=== PATIENT | female | born 1965 | race Caucasian/White ===

== ENCOUNTER 2021-07-17 15:39 | Outpatient (CLI) | payer BC, SELFPAY ==
--- NOTE | ~2021-07-17 | MM_ITS ---
EXAMINATION: MM screening star BI w yoseph HISTORY: Screening TECHNIQUE: Craniocaudal and mediolateral oblique 3-D tomosynthesis images were obtained and synthetic 2-D images were generated. CAD analysis was submitted and interpreted. COMPARISON: Comparison to multiple prior studies sequentially, with oldest reviewed study dated 11/2012. BREAST PARENCHYMAL COMPOSITION: The breasts are heterogeneously dense, which may obscure small masses . FINDINGS: The right breast is stable without evidence for malignancy. There is a mass in the upper ou ter quadrant of the left breast with associated calcifications which is obscured by fibroglandular ti ssue. There is an additional cluster of indeterminate calcifications in the upper outer quadrant of t he left breast which are not significantly changed from prior examination, likely benign. IMPRESSION: 1. New left breast mass with associated indeterminate calcifications, upper outer quadrant of the lef t breast. 2. Additional mammographic views and possible breast ultrasound are recommended. BI-RADS Category 0: Incomplete: Needs additional imaging evaluation. Reviewed, dictated and finalized at location A. IMPRESSION: 1. New left breast mass with associated indeterminate calcifications, upper out er quadrant of the left breast. 2. Additional mammographic views and possible breast ultrasound are recommended . BI-RADS Category 0: Incomplete: Needs additional imaging evaluation.
== END 2021-07-17 15:40 | disposition home or self-care (01) ==
LOC: ANHIMG 15:43
PROVIDERS: PCP Internal Medicine; Visit Provider Obstetrics & Gynecology
DX: Z12.31 Encounter for screening mammogram for malignant neoplasm of breast (principal); R92.8 Other abnormal and inconclusive findings on diagnostic imaging of breast
CPT/HCPCS: 77063; 77067

== ENCOUNTER 2021-08-07 12:42 | Outpatient (CLI) | payer BC, SELFPAY ==
--- NOTE | ~2021-08-07 | MMUS_ITS ---
EXAMINATION: MM diagnostic star LT w yoseph, US breast LT limited HISTORY: Follow-up left breast mass TECHNIQUE: Additional 3-D tomosynthesis images of the left breast were performed and synthetic 2-D im ages were generated. CAD analysis was submitted and interpreted. High resolution Limited left breast ultrasound was performed. COMPARISON: 07/17/2021 BREAST PARENCHYMAL COMPOSITION: The breasts are heterogenously dense, which may obscure small masses. FINDINGS: MAMMOGRAPHIC FINDINGS: There are benign-appearing left breast calcifications. There is a persistent partially obscured mass in the mid outer aspect of the left breast. There is no architectural distortion. ULTRASOUND: Limited left breast ultrasound: At 3:00, 5 cm from the nipple, there is a 5 mm cyst. No suspicious so nographic abnormalities to suggest malignancy. IMPRESSION: 1. No evidence for malignancy in the left breast. Benign findings. 2. Routine yearly screening mammogram and regular clinical breast examination are recommended. BI-RADS Category 2: Benign finding(s). Reviewed, dictated and finalized at location A. IMPRESSION: 1. No evidence for malignancy in the left breast. Benign findings. 2. Routine yearly screening mammogram and regular clinical breast examination a re recommended. BI-RADS Category 2: Benign finding(s).
== END 2021-08-07 12:43 | disposition home or self-care (01) ==
LOC: ANHIMG 12:43
PROVIDERS: PCP Internal Medicine; Visit Provider Obstetrics & Gynecology
DX: R92.8 Other abnormal and inconclusive findings on diagnostic imaging of breast (principal)
CPT/HCPCS: 76642; 77061; 77065; G0279

== ENCOUNTER 2022-12-15 08:23 | Outpatient (CLI) | payer BC, SELFPAY ==
--- NOTE | ~2022-12-15 | MM_ITS ---
EXAMINATION: MM screening star BI w yoseph HISTORY: Screening TECHNIQUE: Craniocaudal and mediolateral oblique 3-D tomosynthesis images were obtained and synthetic 2-D images were generated. CAD analysis was submitted and interpreted. COMPARISON: Comparison to multiple prior studies sequentially, with oldest reviewed study dated 11/2012. BREAST PARENCHYMAL COMPOSITION: The breasts are heterogeneously dense, which may obscure small masses . FINDINGS: The right breast is stable without evidence for malignancy. There are developing clusters o f calcifications in the upper outer quadrant of the left breast posteriorly. IMPRESSION: 1. Developing clustered indeterminate calcifications upper outer quadrant of the left breast. 2. Magnification views are recommended. BI-RADS Category 0: Incomplete: Needs additional imaging evaluation. Reviewed, dictated and finalized at location A. TMETAL WORKER IMPRESSION: 1. Developing clustered indeterminate calcifications upper outer quadrant of th e left breast. 2. Magnification views are recommended. BI-RADS Category 0: Incomplete: Needs additional imaging evaluation.
== END 2022-12-15 08:24 | disposition home or self-care (01) ==
LOC: ANHIMG 08:25
PROVIDERS: PCP Physician Assistant Medical; Visit Provider Obstetrics & Gynecology
DX: Z12.31 Encounter for screening mammogram for malignant neoplasm of breast (principal); R92.8 Other abnormal and inconclusive findings on diagnostic imaging of breast
CPT/HCPCS: 77063; 77067

== ENCOUNTER 2023-01-27 13:53 | Outpatient (CLI) | payer OTHER, SELFPAY ==
--- NOTE | ~2023-01-27 | MMUS_ITS ---
EXAMINATION: MM diagnostic mammo unilat LT, US breast LT complete HISTORY: Developing clustered indeterminate calcifications reported in upper outer quadrant of left b reast on 12/15/2022 screening mammogram TECHNIQUE: Additional ML 3-D tomosynthesis images of the left breast were performed and synthetic 2-D images were generated. CAD analysis was submitted and interpreted. High resolution complete left maral ast ultrasound examination including all 4 quadrants and subareolar area was performed. COMPARISON: 12/15/2022 bilateral screening mammogram BREAST PARENCHYMAL COMPOSITION: The breasts are heterogeneously dense, which may obscure small masses . FINDINGS: MAMMOGRAPHIC FINDINGS: Several clusters of grouped benign-appearing microcalcifications are identified in the upper outer le ft breast; the calcifications are likely associated with benign fibroadenomas. No suspicious mass, architectural distortion, malignant calcification, skin thickening or retraction is evident.. ULTRASOUND: 12:00 near nipple: Parallel circumscribed hypoechoic 5.1 x 2.7 x 4.5 mm lesion without internal vascu larity or posterior shadowing, probably benign 2:00 7 cm from nipple: Parallel circumscribed hypoechoic 3.1 x 8.1 x 7.3 mm hypoechoic lesion without internal vascularity or posterior shadowing, probably benign 2:00 5 cm from nipple: Parallel circumscribed hypoechoic 6.6 x 3.3 x 6.4 mm lesion with minimal inter nal vascularity, no posterior shadowing, probably benign. Six-month targeted left breast ultrasound follow-up examination is recommended. IMPRESSION: 1. Probable benign findings 2. 6 month diagnostic right mammogram and left breast ultrasound follow-up is recommended BI-RADS category 3, probably benign findings. Reviewed, dictated and finalized at location A. IMPRESSION: 1. Probable benign findings 2. 6 month diagnostic right mammogram and left breast ultrasound follow-up is r ecommended BI-RADS category 3, probably benign findings.
== END 2023-01-27 13:54 | disposition home or self-care (01) ==
PROVIDERS: PCP Physician Assistant Medical; Visit Provider Obstetrics & Gynecology
DX: R92.8 Other abnormal and inconclusive findings on diagnostic imaging of breast (principal)
CPT/HCPCS: 76641; 77065

== ENCOUNTER 2023-10-01 12:44 | Outpatient (CLI) | payer OTHER, SELFPAY ==
--- NOTE | ~2023-10-01 | MM_ITS ---
EXAMINATION: MM diagnostic star LT w yoseph HISTORY: Left breast calcifications TECHNIQUE: Additional 3-D tomosynthesis images of the left breast were performed and synthetic 2-D im ages were generated. Magnification views are also obtained. CAD analysis was submitted and interprete d. COMPARISON: 01/27/2023, 10/15/2023, 08/07/2021, 07/17/2021 BREAST PARENCHYMAL COMPOSITION: The breasts are heterogeneously dense, which may obscure small masses . FINDINGS: There are stable, grouped calcifications in the middle third of the outer breast at the 3:0 0 location, 5 cm from the nipple. There has been no suspicious interval change. The morphology appear s to be dystrophic or coarse heterogeneous. IMPRESSION: 1. Stable, probably benign left breast calcifications. 2. Recommend 6 month follow-up diagnostic mammogram. In addition, patient is due for limited breast u ltrasound for follow-up of a probably benign sonographically detected left breast mass. BI-RADS Category 0: Incomplete: Needs additional imaging evaluation. Reviewed, dictated and finalized at location A. N TESTER IMPRESSION: 1. Stable, probably benign left breast calcifications. 2. Recommend 6 month follow-up diagnostic mammogram. In addition, patient is du e for limited breast ultrasound for follow-up of a probably benign sonographica lly detected left breast mass. BI-RADS Category 0: Incomplete: Needs additional imaging evaluation.
== END 2023-10-01 12:45 | disposition home or self-care (01) ==
PROVIDERS: PCP Physician Assistant Medical; Visit Provider Obstetrics & Gynecology
DX: R92.8 Other abnormal and inconclusive findings on diagnostic imaging of breast (principal)
CPT/HCPCS: 77061; 77065; G0279

== ENCOUNTER 2024-05-12 11:25 | Outpatient (CLI) | payer OTHER, SELFPAY ==
--- NOTE | ~2024-05-12 | MMUS_ITS ---
EXAMINATION: MM diagnostic star BI w yoseph, US breast LT limited HISTORY: Follow-up of left breast probably benign calcifications TECHNIQUE: 3-D tomosynthesis images of bilateral breasts were performed and synthetic 2-D images were generated. CAD analysis was submitted and interpreted. High resolution limited left breast ultrasoun d was performed. COMPARISON: 12/15/2022, 01/27/2023, 10/01/2023 FINDINGS: MAMMOGRAPHIC FINDINGS: Breast parenchyma is extremely dense, which lowers the sensitivity of mammography. Parenchymal pattern of both breasts is unchanged. Stable benign coarse calcifications present bilater ally. No suspicious myocardial calcification identified. No suspicious mass lesion or distortion seen . ULTRASOUND: At the 12:00 position of the left breast, neither the nipple, there is a stable 6 x 3 x 3 mm hypoecho ic, wider than tall ovoid mass. No posterior shadowing. At the 2:00 position left breast, 5 cm from t he nipple, there is a stable 6 mm ovoid circumscribed hypoechoic mass, without posterior shadowing. N earby simple cyst is also unchanged. IMPRESSION: No evidence for malignancy. Stable probable benign sonographic lesions seen in left breast, as detai led above. 6 month follow-up left breast ultrasound recommended to show continued stability. BI-RADS category 3, probably benign findings. Reviewed, dictated and finalized at location M. IMPRESSION: No evidence for malignancy. Stable probable benign sonographic lesions seen in left breast, as detailed above. 6 month follow-up left breast ultrasound recom mended to show continued stability. BI-RADS category 3, probably benign findings.
== END 2024-05-12 11:26 | disposition home or self-care (01) ==
PROVIDERS: PCP Nurse Practitioner Family; Visit Provider Obstetrics & Gynecology
DX: R92.8 Other abnormal and inconclusive findings on diagnostic imaging of breast (principal)
CPT/HCPCS: 76642; 77062; 77066; G0279

== ENCOUNTER 2024-11-07 12:50 | Outpatient (CLI) | payer OTHER, SELFPAY ==
--- NOTE | ~2024-11-07 | US_ITS ---
EXAMINATION TYPE: US breast LT limited COMPARISON: 05/12/2024 REASON FOR STUDY: 6 MONTH FOLLOW UP TECHNIQUE: Targeted sonographic evaluation of the left breast was performed assessing grayscale appea gerardo and color Doppler flow. INTERPRETATION: There is a heterogenous background echotexture. At the 12:00 position of the left breast in the periareolar position is a well-circumscribed focus of decreased echogenicity measuring 2.6 x 5.6 x 2.4 mm compared with 2.5 x 6.0 x 3.0 mm without vascula rity or posterior acoustic shadowing. At the 2:00 position of the left breast approximately 5 cm from the nipple is a well-circumscribed fo cus of decreased echogenicity measuring 6.4 x 3.1 x 5.1 mm (compared with 6.2 x 3.1 x 6.9 mm on the p revious study. This focus demonstrates benign features, is without vascularity or posterior acoustic shadowing. At the 2:00 position of the left breast approximately 5 cm from the nipple is a well-circumscribed an echoic avascular focus consistent with a simple cyst for which no further follow-up is needed. IMPRESSION: Multiple well-circumscribed foci of decreased echogenicity of varying sizes, consistent with fibrocys tic breast disease. No cystic or solid lesion of concern is appreciated. BI-RADS CATEGORY: 2: Benign findings. RECOMMENDATION: Resumption of yearly mammography. Reviewed, dictated and finalized at location A. NTEER PATIENT REPRESENTATIVE IMPRESSION: Multiple well-circumscribed foci of decreased echogenicity of varying sizes, co nsistent with fibrocystic breast disease. No cystic or solid lesion of concern is appreciated. BI-RADS CATEGORY: 2: Benign findings. RECOMMENDATION: Resumption of yearly mammography.
== END 2024-11-07 12:51 | disposition home or self-care (01) ==
LOC: ANHIMG 12:56
PROVIDERS: PCP Physician Assistant Medical; Visit Provider Obstetrics & Gynecology
DX: R92.8 Other abnormal and inconclusive findings on diagnostic imaging of breast (principal)
CPT/HCPCS: 76642

== ENCOUNTER 2025-03-27 00:38 | Day surgery (SDC) | payer OTHER, SELFPAY ==
[2025-03-22 08:11] VITALS: BMI 25.0
--- OUTSIDE RECORDS SUMMARY | 2025-03-27 00:40 | XMS_ITS ---
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 ; Other acquired deformities of left foot M21.6X2 ; Left foot pain M79.672 and Right foot pain M79.671 Assessments Encounter Date Diagnosis (ICD Code) Assessment Notes Treatment Notes Treatment Clinical Notes Section Notes 08/18/2024 Other acquired deformities of right foot (ICD-10 - M21.6X1) 08/18/2024 Other acquired deformities of left foot (ICD-10 - M21.6X2) 08/18/2024 Left foot pain (ICD-10 - M79.672) 08/18/2024 Right foot pain (ICD-10 - M79.671) Plan Of Treatment Next Appt Details Follow Up: 2 Weeks,prn, Reas on: Procedure Notes * Category Sub-Category Detail Notes DME: Custom foot orthotics: (Charges submitted to insurance), Recommended and prescribed custom orthotics to stabilize foot structure, reduce stress on joints, relieve pain and improve foot function. Patient given no guarantees regarding effectiveness or relief obtained from custom orthotics. Patient agreed to proceed. , Orthotic fabrication: a negative impression of the patient's feet was obtained and a positive mold of the patient's feet was then created. The custom foot orthotic was then fabricated and finished according to the doctor's prescription. The custom foot orthoses were fitted to the patient's feet in both NWB and WB stance and any adjustments performed as necessary to insure appropriate contour of the orthotic device to each foot and the patient reported satisfaction with initial fit., Finishing of the custom orthotics performed by orthotic tech. The orthotics were fitted to the patients shoes and patient reported satisfaction with fit. DME Management & Training (77246): A min imum of 8-10 minutes were spent with patient for orthotic management and training., Custom foot orthotics: the orthoses were then placed in the patient's shoes and patient walked about the office and any adjustment of the orthotic was performed as necessary until patient reported no issues with slippage or ill fit in shoe. The orthoses were removed from the shoes and patient instructed to allow orthotics to cure for 24 hours before resuming wear. Upon wearing the orthotics again patient was advised to monitor feet for any obvious discomfort and if noted remove the orthotic from the shoes and allow at least 1-2 hours to pass before placing orthotics back in shoes and wearing again. Advised to repeat as necessary until able to wear orthotics qualification engineer with no issues. Dispensed wear and care instructions. All questions answered. Patient scheduled to return to office in 2-4 weeks for check-up of orthotic and f/u of condition. Progress Notes * Kya NAIRDOB:1965 (58 yo F)Acc No.[id number]:08/18/2024 Progress Notes Patient: Kya WILEY Provider: Blayne Reid DPM :1965 A ge:58 Y S ex:Female Date:08/18/2024 Address:[address] [place], [place] [id number] Pcp:Mary Gonzalez Subjective: * Chief Complaints: * O rthotic FABRICATE * HPI: Jos Morgan assisting with visit:: Orthotic Fabrication / Modification L adri. P rimary reason for visit:: Patient presents for custom orthotic fabrication. See provider progress note for details regarding order / Rx. Charges for orthotics will be submitted to insurance and patient is aware of responsibility for any coninsurance, copay or deductible associated with custom orthotics. * Medical History: * Medications: Objective: * Vitals: * Examination: G eneral Examination: F itting of durable medical equipment performed by [facility]. No exam performed other than that required as part of the fitting process. Assessment: * Assessment: 1. O ther acquired deformities of right foot - M21.6X1 (Primary) 2 . O ther acquired deformities of left foot - M21.6X2 3 . L eft foot pain - M79.672 ? 4 . R ight foot pain - M79.671 Plan: * Treatment: * Procedures: D ME:: Custom foot orthotics: ( Charges submitted to insurance), Recommended and prescribed custom orthotics to stabilize foot structure, reduce stress on joints, relieve pain and improve foot function. Patient given no guarantees regarding effectiveness or relief obtained from custom orthotics. Patient agreed to proceed. , Orthotic fabrication: a negative impression of the patient's feet was obtained and a positive mold of the patient's feet was then created. The custom foot orthotic was then fabricated and finished according to the doctor's prescription. The custom foot orthoses were fitted to the patient's feet in both NWB and WB stance and any adjustments performed as necessary to insure appropriate contour of the orthotic device to each foot and the patient reported satisfaction with initial fit., Finishing of the custom orthotics performed by [employer] tech. The orthotics were fitted to the patients shoes and patient reported satisfaction with fit. . DME Management & Training (13095): A minimum of 8-10 minutes were spent with patient for orthotic management and training., Custom foot orthotics: the orthoses were then placed in the patient's shoes and patient walked about the office and any adjustment of the orthotic was performed as necessary until patient reported no issues with slippage or ill fit in shoe. The orthoses were removed from the shoes and patient instructed to allow orthotics to cure for 24 hours before resuming wear. Upon wearing the orthotics again patient was advised to monitor feet for any obvious discomfort and if noted remove the orthotic from the shoes and allow at least 1-2 hours to pass before placing orthotics back in shoes and wearing again. Advised to repeat as necessary until able to wear orthotics qualification engineer with no issues. Dispensed wear and care instructions. All questions answered. Patient scheduled to return to office in 2-4 weeks for check-up of orthotic and f/u of condition. . * Procedure Codes: L 3000 FT INSRT MOLD UCB TYPE BERKLY SHELL, Modifiers: LT L3000 FT INSRT MOLD UCB TYPE BERKLY SHELL, Modifiers: RT S0395 (negative impression of foot), Units: 2.00 , Modifiers: LT , [id number] ORTHOTIC MGMT AND TRAINING * Follow Up: 2 Weeks,prn * Images: * Sign off status: Completed true * Provider: Blayne Reid DPM Date: Generated for Esvin santos/Jony/Diego on: 0 03/27/2025 12:40 AM CDT History and Physical Notes * HPI (History of Present Illness) Category Sub-Category Detail Notes Category Not es Primary reason for visit: Patient presents for custom orthotic fabrication. See provider progress note for details regarding order / Rx. Charges for orthotics will be submitted to insurance and patient is aware of responsibility for any coninsurance, copay or deductible associated with custom orthotics. MA assisting with visit: Orthotic Fabrication / Modification Leonor Examination Category Sub-Category Detail Notes Category Not es General Examination Fitting of durable medical equipment performed by MA. No exam performed other than that required as part of the fitting process.
--- OUTSIDE RECORDS SUMMARY | 2025-03-27 00:40 | XMS_ITS ---
Author Organization 1 OF Adelia perera [facility] Address [address] [facility] [employer] [facility] [address] [place] [address] Care Team Providers Care Quality System Manager Name Role Phone Mary Gonzalez Primary Care Provider Unavailab Franca Mckinney Unavailable [phone] Allergies Allergen (clinical drug ingredient) Drug/Non Drug Allergy documented on EMR Reaction Allergy Type Onset Date Status Substance with sulfonamide structure and antibacterial mechanism of action (substance) sulfa (uncoded) Unknown Allergy Active REASON FOR VISIT orthotics Medications Medication SIG (Take, Route, Frequency, Duration) Notes Start Date End Date Status Rosuvastatin Calcium 10 MG Oral for 90 Days Active NexIUM 20 MG 1 capsule Orally Onc e a day Active Urea 20 % 1 application to aff ected area as needed Topical Once a day for 30 days 07/28/2024 Active Albuterol Sulfate HFA 108 (90 Base) MCG/ACT Inhalation for 34 Days Active Ketorolac Tromethamine 10 MG Oral for 5 Days Active Vital Signs Height 63 in 09/01/2024 Weight 155 lbs 09/01/2024 BMI 27.45 kg/m2 09/01/2024 Encounters Encounter Location Date Provider Diagnosis 1 OF Adelia Gonzales [facility] [address] [place] [address] 09/01/2024 Franca Reid Presence of orthotic device Z97.8 Assessments Encounter Date Diagnosis (ICD Code) Assessment Notes Treatment Notes Treatment Clinical Notes Section Notes 09/01/2024 Presence of orthotic device (ICD-10 - Z97.8) Evaluation today included a review of medical history, review of systems, discussion of exam findings, and review of diagnoses and treatment options. Recommended adjustment of the custom orthotics. The arch height of both orthotics was adjusted. The lateral aspect of the left orthotic was adjusted. She felt comfortable with the adjustments. She was advised to trial the orthotics and was to call if she needs any further adjustments. She would like to return as needed for her foot pain. Plan Of Treatment Treatment Notes Assessment Notes Presence of orthotic device Evaluation willian edouard included a review of medical history, review of systems, discussion of exam findings, and review of diagnoses and treatment options. Recommended adjustment of the custom orthotics. The arch height of both orthotics was adjusted. The lateral aspect of the left orthotic was adjusted. She felt comfortable with the adjustments. She was advised to trial the orthotics and was to call if she needs any further adjustments. She would like to return as needed for her foot pain. Next Appt Details Follow Up: prn, Reason: Progress Notes * SILVANOKyaDOB:1965 (58 yo F)Acc No.[id number]:09/01/2024 Progress Notes Patient: Kya WILEY Provider: Blayne Reid DPM :1965 A ge:58 Y S ex:Female Date:09/01/2024 Address:[address] [place] [address] Pcp:Mary Gonzalez Subjective: * Chief Complaints: * O rthotics * HPI: Jos Morgan assisting with visit:: HPI/Rooming: Janae frey reason for visit:: Follow-up: [age] y/o female RTO for f/u of orthotic fabrication/calluses. Today, she reports the orthotics are keeping her aligned, but she can only tolerate them for about 4 hours until she gets LT foot pain in her arch which she describes as aching. She thinks the orthotics need to be adjusted. Her calluses do feel better.. * ROS: * MULTI-SYSTEM REVIEW:: Nausea, fever or chillls d enies. A ny change in medications since last visit? d enies. A ny changes in medical history/hospitalizations? d enies. * Medical History: * Surgical History: N o Surgical History documented. * Hospitalization/Major Diagno stic Procedure: * Family History: Ovarian cancer. * Medications: T akingNexIUM 20 MG Capsule Delayed Release 1 capsule Orally Once a day Rosuvastatin Calcium 10 MG Tablet Oral Ketorolac Tromethamine 10 MG Tablet Oral Albuterol Sulfate HFA 108 (90 Base) MCG/ACT Aerosol Solution Inhalation Urea 20 % Cream 1 application to affected area as needed Topical Once a day Medication List reviewed and reconciled with the patientTaking NexIUM 20 MG Capsule Delayed Release 1 capsule Orally Once a day Taking Rosuvastatin Calcium 10 MG Tablet Oral Taking Ketorolac Tromethamine 10 MG Tablet Oral Taking Albuterol Sulfate HFA 108 (90 Base) MCG/ACT Aerosol Solution Inhalation Taking Urea 20 % Cream 1 application to affected area as needed Topical Once a day Medication List reviewed and reconciled with the patient * Allergies: s triston[Allergies Verified] Objective: * Vitals: W t:155lbs, Wt-k.31 kg, Ht: 63 in, BMI:27.45Index. * Examination: G eneral Examination: Constitutional / Appearance: N o acute distress , Well nourished, Appropriate personal hygiene. Mental status: C ooperative, Oriented to person, place and time, Mood and affect: normal, Judgement and intellect: normal with appropriate response to questions. Shoes today: A sics. Exam unchanged from prior visit: w ith no significant changes in appearance or condition of feet. No acute pain with palpation of the calluses today. Custom orthotics were evaluated.. Assessment: * Assessment: 1. P resence of orthotic device - Z97.8 (Primary) Plan: * Treatment: * Procedure Codes: * Preventive Medicine: Counseling: C are goal follow-up plan: BMI counseling provided to patient:?Lifestyle education * Follow Up: p rn * Images: * HER HAND Sign off status: Completed true * Provider: Blayne Reid DPM Date: 1 Generated for Esvin santos/Jony/Diego on: 0 03/27/2025 12:40 AM CDT History and Physical Notes * HPI (History of Present Illness) Category Sub-Category Detail Notes Category Not es Primary reason for visit: Follow-up: 58 y/o female RTO for f/u of orthotic fabrication/calluses. Today, she reports the orthotics are keeping her aligned, but she can only tolerate them for about 4 hours until she gets LT foot pain in her arch which she describes as aching. She thinks the orthotics need to be adjusted. Her calluses do feel better. ORVILLE assisting with visit: HPI/Rooming: Estrellita Examination Category Sub-Category Detail Notes Category Not es General Examination Mental status: Cooperative, Oriented to person, place and time, Mood and affect: normal, Judgement and intellect: normal with appropriate response to questions Shoes today: Asics Exam unchanged from prior visit: with no significant changes in appearance or condition of feet. No acute pain with palpation of the calluses today. Custom orthotics were evaluated. Constitutional / Appearance: No acute di stress , Well nourished, Appropriate personal hygiene
--- OUTSIDE RECORDS SUMMARY | 2025-03-27 00:40 | XMS_ITS ---
Author Organization 1 OF Adelia perera [facility] Address [address] [place] [address] Care Team Providers Care Clinic Coordinator Name Role Phone Mary Gonzalez Primary Care Provider Unavailab Franca Mckinney Unavailable [phone] REASON FOR VISIT prior auth for custom orthotics Encounters Encounter Location Date Provider Diagnosis 1 OF Adelia [facility] [address] [place] [address] 07/28/2024 Franca Reid Plan Of Treatment No Information Progress Notes * Kya NAIRDOB:1965 (58 yo F)Acc No.[id number]:07/28/2024 Patient: Kya WILEY :1965 A ge:58 Y S ex:Female Address:[address] [place], [address] * true * Date: Generated for Printi ng/Faxing/eTransmitting on: 0 03/27/2025 12:40 AM CDT
--- OUTSIDE RECORDS SUMMARY | 2025-03-27 00:41 | XMS_ITS | Patient Health Record ---
Author Organization 1 OF Adelia perera [facility] Address [address] [employer] [facility] [address] [place] [address] Care Team Providers Care Scrap Bunch Maker Name Role Phone Mary Gonzalez Primary Care Provider Unavailab Franca Mckinney Unavailable [phone] Allergies Allergen (clinical drug ingredient) Drug/Non Drug Allergy documented on EMR Reaction Allergy Type Onset Date Status Substance with sulfonamide structure and antibacterial mechanism of action (substance) sulfa (uncoded) Unknown Allergy Active Reason For Referral No Information Medications Medication SIG (Take, Route, Frequency, Duration) [...] 10 MG Oral for 5 Days Active Social History Tobacco Use: Social History Observation Description Date Details (start date - stop date) Never Smoker NA - NA Tobacco Control (Standard) Question Answer Notes Tobacco use: Nonsmoker Problems Problem Type SNOMED Code ICD Code Onset Dates Problem Status W/U Status Risk Notes Problem 388149428 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 Problem 859700886 Other acquired deformities of left foot (M21.6X2) Active confirmed Vital Signs Height 63 in 09/01/2024 Weight 155 lbs 09/01/2024 BMI 27.45 kg/m2 09/01/2024 Encounters Encounter Location Date Provider Diagnosis 1 OF Adelia [facility] [address] [employer] [facility] [address] [place] [address] 07/28/2024 Franca Reid Other acquired deformities of right foot M21.6X1 ; Other acquired deformities of left foot M21.6X2 ; Callus L84 ; Xerosis of skin L85.3 ; Right foot pain M79.671 and Left foot pain M79.672 1 OF Adelia Velazquez [facility] [address] [address] 08/18/2024 Franca Reid Other acquired deformities of right foot M21.6X1 ; Other acquired deformities of left foot M21.6X2 ; Left foot pain M79.672 and Right foot pain M79.671 1 OF Adelia Velazquez [facility] [address] [place] [address] 09/01/2024 Franca Reid Presence of orthotic device Z97.8 1 OF Adelia Velazquez [facility] [address] [address] 07/28/2024 Franca Reid Assessments Encounter Date Diagnosis (ICD Code) Assessment Notes Treatment Notes Treatment Clinical Notes Section Notes 07/28/2024 Other acquired deformities of right foot (ICD-10 - M21.6X1) I discussed the importance of wearing good supportive shoes. Discussed benefits of orthotics which I advised can potentially improve alignment and stability of the lower extremity as well as improve shock absorption of the foot and ankle which may help alleviate symptoms associated with this condition. We will check her benefits for custom orthotics. 07/28/2024 Other acquired deformities of left foot (ICD-10 - M21.6X2) 08/18/2024 Other acquired deformities of right foot (ICD-10 - M21.6X1) 08/18/2024 Other acquired deformities of left foot (ICD-10 - M21.6X2) 09/01/2024 Presence of orthotic device (ICD-10 - [...] return as needed for her foot pain. 08/18/2024 Left foot pain (ICD-10 - M79.672) 07/28/2024 Callus (ICD-10 - L84) Patient visit today included a review of medical history, review of systems, physical exam and discussion of exam findings, and discussion of diagnoses and treatment options. Recommended initial treatment today consisting of trimming of the hyperkeratotic lesions. She was advised that she can keep the calluses maintained with a pumice stone. She was also given a prescription for urea cream to use on the calluses. 07/28/2024 Xerosis of skin (ICD-10 - L85.3) 08/18/2024 Right foot pain (ICD-10 - M79.671) 07/28/2024 Right foot pain (ICD-10 - M79.671) 07/28/2024 Left foot pain (ICD-10 - M79.672) Plan Of Treatment No Information Insurance Providers Payer Name Payer Address Payer Phone Subscriber Number Group Number Insured Name Patient Relationship to Insured Coverage Start Date Coverage End Date R [address] [address] [place] [address] [id number] [phone] Kya Nair Self - patient is the insured Medical (General) History Medical History History ICD Code GERD, asthma
--- OUTSIDE RECORDS SUMMARY | 2025-03-27 00:41 | XMS_ITS | Referral Summary ---
Author Organization [facility] Address [address] [place] [address] Care Team Providers Care Mathematics Improvement Teacher Name Role Phone Anita Gonzalez Primary Care Provider +1- [phone] Allergies Active Allergy Reactions Criticality Noted Date Comments Sulfa Rash Medium 09/12/2023 Medications benzonatate (TESSALON) 100 mg capsuleIndicati ons:Cough Take 1 capsule (100 mg total) by mouth every 8 (eight) hours 21 capsule 09/12/2023 Active Social History Tobacco Use Types Packs/Day Years Used Date Smoking Tobacco: Never Assessed Personal Safety Answer Date Recorded Have you ever been in or are you currently in a harmful physical or emotional relationship or is someone making you feel afraid or unsafe? Denies 09/12/2023 Comments No Sex and Gender Information Value Date Recorded Sex Assigned at Not on file Legal Sex Female 5:46 PM CDT Gender Identity Not on file Sexual Orientation Not on file Last Filed Vital Signs Vital Sign Reading Time Taken Comments Blood Pressure 127/71 09/12/2023 7:00 PM CDT Pulse 78 09/12/2023 7:00 PM CDT Temperature 37.7 C (99.9 F) 09/12/2023 6:01 PM CDT Respiratory Rate 18 09/12/2023 7:00 PM CDT Oxygen Saturation 99% 09/12/2023 7:00 PM CDT Inhaled Oxygen Concentration - - Weight 68.4 kg (150 lb 12.7 oz) 09/12/2023 6:01 PM CDT Height 165.1 cm (5' 5 ) 09/12/2023 6:01 PM CDT Body Mass Index 25.09 09/12/2023 6:01 PM CDT Plan of Treatment Not on file [place] [address] [address] [facility] HMO/PPO Address: [facility] [id number] [place] [phone] Care Teams Mathematics Improvement Teacher Relationship Specialty Start Date End Date Anita Gonzalez PA [address] [place] [id number] PCP - General Physician Equipment Cleaner 09/12/23
--- OUTSIDE RECORDS SUMMARY | 2025-03-27 00:41 | XMS_ITS | Clinical Summary ---
Author Organization [facility] Address [address] [place] [address] Care Team Providers Care Hotel Concierge Name Role Phone Anita Gonzalez Primary Care Provider +1- [phone] Allergies Active Allergy Reactions Criticality Noted Date [...] 09/12/2023 6:01 PM CDT Plan of Treatment Health Maintenance Due Date Last Done Comments Breast Cancer Screening-Mammogram 1965 Cervical Cancer Screening 1966 Colon Cancer Screening-Colonoscopy 1966 Depression Screening 1966 Hepatitis C Screening 1966 Hepatitis B Screening 1984 Regular Well Visit/Exam 18-64 1984 Zoster Vaccine (1 of 2) 2016 Covid-19 Vaccine (3 - season) 2024 09/27/2021, 01/31/2021 Influenza Vaccine (#1) 2024 , 10/08/2022, 08/02/2021, Additional history exists DTaP/Tdap/Td Vaccine (2 - Td or Tdap) 06/22/2033 06/22/2023 Pneumococcal vaccine <65 Aged Out No longer eligible based on patient's age to complete this topic [place] [address] [facility] Care Teams Hotel Concierge Relationship Specialty Start Date End Date Anita Gonzalez PA [address] [place] [address] [phone] PCP - General Physician Lump Roller 09/12/23
--- OUTSIDE RECORDS SUMMARY | 2025-03-27 00:41 | XMS_ITS | Clinical Summary ---
Author Organization [facility] Address [address] [place] [address] Care Team Providers Care Fan Mail Editor Name Role Phone Unavailable Primary Care Provider Unavailabl e Social History Tobacco Use Types Packs/Day Years Used Date Smoking Tobacco: Never Assessed Comments Unknown Sex and Gender Information Value Date Recorded Sex Assigned at Not on file Legal Sex Female 8:05 AM ETL LEAD Gender Identity Not on file Sexual Orientation Not on file Plan of Treatment Health Maintenance Due Date Last Done Comments Hepatitis C Virus (HCV) Screening 1966 TdaP Immunization 1966 Hepatitis B Immunization (1 of 3 - 19+ 3-dose series) 1985 Pap Smear 1987 Cervical Cancer Screening (CCS) 1996 HPV/Cotest 1996 Colonoscopy 2011 Colorectal Cancer Screening 2011 Cologuard 2016 Immunochemical Fecal Occult Blood 2016 Mammogram 2016 Pneumococcal Immunization (50+ years) (1 of 1 - PCV) 2016 Zoster Immunization (1 of 2) 2016 Influenza Immunization (#1) 07/17/202407/17, 08/05/2019, 08/27/2017, Additional history exists SARS-COV-2 Immunization (2023- season) 2024 09/27/2021, 01/31/2021 Respiratory Syncytial Virus (RSV) Immunization (Adult) (1 - 1-dose 75+ series) 2041 Meningococcal Immunization (ACWY) Aged Out No longer eligible based on patient's age to complete this topic Pneumococcal Immunization Combined Aged Out No longer eligible based on patient's age to complete this topic Rotavirus Immunization Aged Out No lo nger eligible based on patient's age to complete this topic
--- OUTSIDE RECORDS SUMMARY | 2025-03-27 00:41 | XMS_ITS | Clinical Summary ---
Author Organization [facility] Address [address] [place] [address] Care Team Providers Care Manager Programming Name Role Phone Unavailable Primary Care Provider Unavailabl e Social History Tobacco Use Types Packs/Day Years Used Date Smoking Tobacco: Never Assessed Comments Unknown Sex and Gender Information Value Date Recorded Sex Assigned at Not on file Legal Sex Female 7:29 PM CDT Gender Identity Not on file Sexual Orientation Not on file Last Filed Vital Signs Vital Sign Reading Time Taken Comments Blood Pressure 124/76 06/13/2016 3:19 PM CDT Pulse 75 06/13/2016 3:19 PM CDT Temperature - - Respiratory Rate - - Oxygen Saturation - - Inhaled Oxygen Concentration - - Weight 63.5 kg (140 lb) 06/13/2016 3:19 PM CDT Height 165.1 cm (5' 5 ) 06/13/2016 3:19 PM CDT Body Mass Index 23.3 06/13/2016 3:19 PM CDT Plan of Treatment Health Maintenance Due Date Last Done Comments Cervical Cancer Screening Pa p Smear (Age 30 to 64) Every 3 Years 1966 Colorectal Cancer Screening Colonoscopy (10 Years) 1966 Annual Physical 1969 Hepatitis C 1984 DTaP, Tdap and Td Vaccines ( 1 - Tdap) 1985 Hepatitis B Vaccines (1 of 3 - 19+ 3-dose series) 1985 Cervical Cancer Screening Pa p with HPV Testing (Age 30 to 64) Every 5 Years 1996 Cervical Cancer Screening with HPV 1996 Mammogram Screening 2006 Pneumococcal Vaccine: 50+ Ye ars (1 of 1 - PCV) 2016 Zoster Vaccines (1 of 2) 2016 COVID-19 Vaccine (2023-2 5 season) 2024 Meningococcal B Vaccine Aged Out No l onger eligible based on patient's age to complete this topic Meningococcal Vaccine Aged Out No rose pippa eligible based on patient's age to complete this topic RSV Immunizations Under 20 Months Aged Out No longer eligible based on patient's age to complete this topic
[2025-03-27 09:20] VITALS: BP 136/70; PULSE 63; RESP 18; TEMP 36.3; O2SAT 100
[2025-03-27] MEDS: LACTATED RINGERS 1,000 ML 150 ML IV CONT (09:27)
--- NOTE | 2025-03-27 09:30 | P.PNAN_ITS ---
Anes - Initial Pre Proc Eval Procedure: Operation Date: 03/27/25 10:30 Proposed Procedures p Esophagogastroduodenoscopy - Josué Lance MD Date/Time: 03/27/25 09:30 Surgeon: Josué Lance MD Pre Op Diagnosis: Gastro-esophageal reflux disease without esophagit Patient Data Age: 59 Gender: F Height: 1.65 m Weight: 70 kg Last Vital Signs Temp 36.3 C L 03/27/25 09:20 Pulse 63 03/27/25 09:20 Resp 18 03/27/25 09:20 BP 136/70 03/27/25 09:20 Pulse Ox 100 03/27/25 09:20 O2 Del Method Room Air 03/27/25 09:20 Allergies Allergy/AdvReac Type Severity Reaction Status Date / Time Sulfa (Sulfonamide Allergy Severe HIVES Verified 03/27/25 09:19 Antibiotics) Home Medications ?Medication ?Instructions ?Recorded ?Confirmed ?Type typeqzgbyrxv-Wk-fycl-minerals 18 1 tablet PO DAILY 08/18/22 03/27/25 History mg-0.4 mg tablet coenzyme Q10 200 mg capsule 200 mg PO DAILY 02/25/23 03/27/25 History cholecalciferol (vitamin D3) 125 125 mcg PO DAILY 02/26/23 03/27/25 History mcg (5,000 unit) capsule cyanocobalamin (vitamin B-12) 1,000 mcg PO DAILY 02/26/23 03/27/25 History 1,000 mcg tablet albuterol sulfate 90 mcg/actuation 1 inh inhalation Q4H PRN shortness 12/28/23 03/22/25 Rx aerosol inhaler (Ventolin HFA) of breath or wheezing #8.5 grams ipratropium 0.5 mg-albuterol 3 mg 3 ml inhalation QID PRN shortness 02/28/25 03/22/25 Rx (2.5 mg base)/3 mL nebulization of breath #180 mL soln esomeprazole magnesium 40 mg 40 mg PO BID #180 caps 03/09/25 03/27/25 Rx capsule,delayed release rosuvastatin 10 mg tablet 10 mg PO QHS #90 tabs 03/09/25 03/27/25 Rx Patient hx anesthesia problems: none Family hx anesthesia problems: none Results Review: All pre-operative results and documents have been reviewed as part of the pre- operative evaluation. [facility]LY [facility], [facility] Past Medical History Medical History Dysphagia Sciatica GERD (gastroesophageal reflux disease) Dyslipidemia Vitamin B12 deficiency Vitamin D deficiency Depression Asthma Surgical History Surgical History Hx of cholecystectomy S/P RINKU (total abdominal hysterectomy) ovaries remain History of tubal ligation Family History Family History Mother Asthma Father CAD (coronary artery disease) Grandparent Acute myocardial infarction [place] at 68 years old Social History Social History Social History: very confident with medical forms Smoking status: Never smoker Alcohol intake: current Drinks per week: 1 Substance use: never Do You Feel Safe in your Home?: Yes Lack of Transportation: No Lack of Food: Never True Current Housing: I Have Housing Concerned About Future Housing: No Difficulty Paying Gas/Electric Bills: No Difficulty Paying for Meds: No Currently Unemployed: No Education: High School Diploma/GED Difficulty w/ Childcare or Family Care: No Living arrangements: with family Occupation/Education: occupation Gender identity (if verbalized by the patient): Female Anes - Eval Final PreProcedure Day of Procedure 03/27/25 09:30 Patient weight: normal Heart: regular rate and rhythm Lungs: clear to auscultation Airway: Mallampati scale class II Neurological: alert and oriented Last oral intake: >/= 8 hours ASA classification: II Emergent: no Anesthetic plan: proceed Anesthesia type and monitoring: general GIVS and standard monitoring Results Review: All pre-operative results and documents have been reviewed as part of the pre- operative evaluation. Informed Consent: The patient's anesthetic plan and its attendant risks and benefits were discussed with the patient/family/POA. Questions were solicited and answers provided to the satisfaction of the patient/family/POA.
--- NOTE | 2025-03-27 10:26 | PM.IMHP ---
H&P: HPI History of Present Illness Date/Time: 03/27/25 10:26 Chief Complaint: Dysphagia-GERD Narrative: the patient has a longstanding history of heartburn, currently controlled with esomeprazole 40 mg which she takes before dinner. In addition, she has a history of dysphagia and had an esophageal dilation about 8 years ago. She did well until 6 months ago when she started to have dysphagia to solid food again. There is no dysphagia to liquids, nausea vomiting or regurgitation. She is referred for EGD. Review of Systems Review of Systems: All systems reviewed & are unremarkable except as noted in HPI and below PMFSH Past Medical History Medical History Dysphagia Sciatica GERD (gastroesophageal reflux disease) Dyslipidemia Vitamin B12 deficiency Vitamin D deficiency Depression Asthma Surgical History Surgical History Hx of cholecystectomy S/P RINKU (total abdominal hysterectomy) ovaries remain History of tubal ligation Family History Family History Mother Asthma Father CAD (coronary artery disease) Grandparent Acute myocardial infarction [place] at 68 years old Social History Social History Social History: very confident with medical forms Smoking status: Never smoker Alcohol intake: current Drinks per week: 1 Substance use: never Do You Feel Safe in your Home?: Yes Lack of Transportation: No Lack of Food: Never True Current Housing: I Have Housing Concerned About Future Housing: No Difficulty Paying Gas/Electric Bills: No Difficulty Paying for Meds: No Currently Unemployed: No Education: High School Diploma/GED Difficulty w/ Childcare or Family Care: No Living arrangements: with family Occupation/Education: occupation Gender identity (if verbalized by the patient): Female Meds Home Medications and Allergies Home Medications ?Medication ?Instructions ?Recorded ?Confirmed ?Type lgmoafqswozm-Dp-irpo-minerals 18 1 tablet PO DAILY 08/18/22 03/27/25 History mg-0.4 mg tablet coenzyme Q10 200 mg capsule 200 mg PO DAILY 02/25/23 03/27/25 History cholecalciferol (vitamin D3) 125 125 mcg PO DAILY 02/26/23 03/27/25 History mcg (5,000 unit) capsule cyanocobalamin (vitamin B-12) 1,000 mcg PO DAILY 02/26/23 03/27/25 History 1,000 mcg tablet albuterol sulfate 90 mcg/actuation 1 inh inhalation Q4H PRN shortness 12/28/23 03/22/25 Rx aerosol inhaler (Ventolin HFA) of breath or wheezing #8.5 grams ipratropium 0.5 mg-albuterol 3 mg 3 ml inhalation QID PRN shortness 02/28/25 03/22/25 Rx (2.5 mg base)/3 mL nebulization of breath #180 mL soln esomeprazole magnesium 40 mg 40 mg PO BID #180 caps 03/09/25 03/27/25 Rx capsule,delayed release rosuvastatin 10 mg tablet 10 mg PO QHS #90 tabs 03/09/25 03/27/25 Rx Allergies Allergy/AdvReac Type Severity Reaction Status Date / Time Sulfa (Sulfonamide Allergy Severe HIVES Verified 03/27/25 09:19 Antibiotics) Vital Signs Vital Signs - 24 hr 03/27/25 09:20 Temperature 97.4 F L Pulse Rate 63 Respiratory Rate 18 Blood Pressure 136/70 Pulse Oximetry 100 Oxygen Delivery Room Air Exam Const: General: cooperative and healthy appearing Resp: Effort & Inspection: normal respiratory effort and able to speak in complete sentences Auscultation: clear to auscultation bilaterally Cardio: Rate: regular rate Rhythm: regular rhythm GI: Inspection: normal to inspection GI Palp: No No hepatosplenomegaly present Auscultation: normal bowel sounds Rectal Exam: deferred Skin: General skin exam: normal color Psych: Appearance: grossly normal Mental Status: mental status grossly normal Assessment and Plan Assessment and plan (1) Dysphagia: Code(s): R13.10 - Dysphagia, unspecified Status: Acute Assessment and Plan: The patient is deemed a good candidate for the procedure. Consent signed. Will proceed.
[2025-03-27 10:47] VITALS: BP 94/53; PULSE 82; RESP 21; O2SAT 97
[2025-03-27 10:57] VITALS: BP 112/62; PULSE 84; RESP 24; O2SAT 97
[2025-03-27 11:07] VITALS: BP 131/70; PULSE 80; RESP 22; O2SAT 97
== END 2025-03-27 11:21 | disposition home or self-care (01) ==
PROVIDERS: PCP Physician Assistant Medical; Visit Provider Internal Medicine Gastroenterology
PROC: 0DJ08ZZ Inspection of Upper Intestinal Tract, Via Natural or Artificial Opening Endoscopic (ICD-10-PCS; CPT 43239; principal; 2025-03-27 10:30)
DX: K22.2 Esophageal obstruction (principal); K44.9 Diaphragmatic hernia without obstruction or gangrene
CPT/HCPCS: 43239; 43450; 88305; J2003; J2704; J7120

== ENCOUNTER 2025-05-05 12:36 | Outpatient (CLI) | payer OTHER, SELFPAY ==
--- NOTE | 2025-05-05 15:27 | WPDPFTINT ---
PFT Procedure Performed PFT Procedure Performed Spirometry with Pre/Post Bronchodilator Plethysmography (Lung Vol) Diffusing Cap (DLCO) Flow Vol Loop PFT Interpretation This is a pulmonary function test with pre and post-bronchodilator spirometry, plethysmography and diffusing capacity. The test was performed and results interpreted in accordance with the 2019 and 2005 ATS/ERS Task Force guidelines respectively using the Global Lung Function Initiative-2012 reference equations. Patient demonstrated good effort and cooperation. Reproducibility criteria were met. The quality of the pre bronchodilator spirometry maneuver was Grade A and post bronchodilator spirometry maneuver was Grade A. Findings: Spirometry:The contour the expiratory flow tracing is flattened and demonstrates an oscillating or sawtooth pattern in 3 of 3 pre bronchodilator maneuvers and 3 of 3 post bronchodilator maneuvers. The contour the inspiratory flow tracing is normal. The pre bronchodilator FVC is 3.08 L, 92% predicted. The pre bronchodilator FEV1 is 1.13 L, 43% predicted. The pre bronchodilator FEV1: FVC ratio is 37%. The post bronchodilator FVC is 3.17 L, representing a 3% increase. The post bronchodilator FEV1 is 1.05 L, representing a 7% decrease. The post bronchodilator FEV1: FVC ratio is 33%. Plethysmography: The total lung capacity is 5.66 L, 109% predicted. The functional residual capacity is 3.17 L, 108% predicted. The residual volume is 2.57 L, 129% predicted. Diffusing capacity: The diffusing capacity unadjusted for hemoglobin and carboxyhemoglobin 17.6, 79% predicted. The diffusing capacity adjusted for alveolar volume is 3.85, 87% predicted. In comparison to a spirometry report performed at [facility] in [facility] dated 06/19/2015, in the 1 flow tracing shown there is no expiratory flow tracing flattening and there is no sawtooth pattern. The FVC is unchanged from 3.36 L to 3.08 L. The FEV1 is decreased from 2.26 L to 1.13 L. Impression: The contour the expiratory flow tracing is flattened. This is consistent with a variable intrathoracic obstruction and can be seen with tracheomalacia of the intrathoracic airway, intrathoracic bronchogenic cyst, malignant tracheal lesions and vocal fold abnormalities. Clinical correlation is recommended. The contour the expiratory flow tracing demonstrates a reproducible oscillating or sawtooth pattern. This is usually generated by air flow disturbances in the upper airway from tremors of the respiratory muscles. This has been associated with sleep apnea, obesity, snorers without obstructive sleep apnea, upper airway injury, upper airway stenosis, tracheobronchomalacia, neuromuscular disorders with bulbar involvement, burn injury of the upper airway, diaphragmatic myoclonus, and herpes zoster of abdominal muscles. Clinical correlation is recommended. Otherwise, there is a severe obstructive abnormality. There is no significant improvement after inhaling a single dose of albuterol. The lung volumes are normal. The diffusing capacity is normal. In comparison to a previous PFT report from an outside facility which contained only 1 spirometry flow tracing, the flattening of the expiratory flow tracing and sawtooth pattern are new. There has been a greater than anticipated time dependent decrease in the FEV1 with no significant change in the FVC. Clinical correlation is recommended.
== END 2025-05-05 12:37 | disposition home or self-care (01) ==
PROVIDERS: PCP Physician Assistant Medical; Visit Provider Physician Assistant Medical
DX: R94.2 Abnormal results of pulmonary function studies (principal); J45.909 Unspecified asthma, uncomplicated
CPT/HCPCS: 94060; 94726; 94729

== ENCOUNTER 2025-05-16 10:44 | Outpatient (CLI) | payer OTHER, SELFPAY ==
--- NOTE | ~2025-05-16 | CT_ITS ---
Clinical Indication: Dysphagia, abnormal liver function studies CT Scan of the Chest with Contrast: Technique: Contiguous sections were acquired throughout the chest after intravenous administration of 75 cc of Omnipaque 350. Dose reduction technique was used on this scan by utilizing automated exposu re control and iterative reconstruction technique. The dose-length product (DLP) was 145.52 mGy-cm. Findings: There is no evidence of any significant mediastinal, hilar or axillary lymphadenopathy. There is no f illing defect in the pulmonary arterial tree to suggest pulmonary embolus. There is no evidence of ao rtic dissection or aneurysm. There is no evidence of pleural or pericardial effusion. The lungs are clear. No pulmonary nodules or infiltrates are noted. Images through the upper abdomen reveal small hiatal hernia. Impression: Clear lungs. Small hiatal hernia. Reviewed, dictated and finalized at [facility]. Impression: Clear lungs. Small hiatal hernia.
== END 2025-05-16 10:45 | disposition home or self-care (01) ==
PROVIDERS: PCP Physician Assistant Medical; Visit Provider Physician Assistant Medical
DX: R13.10 Dysphagia, unspecified (principal); R94.2 Abnormal results of pulmonary function studies; K44.9 Diaphragmatic hernia without obstruction or gangrene
CPT/HCPCS: 71260; Q9967

== ENCOUNTER 2025-09-29 15:01 | Outpatient (CLI) | payer OTHER, SELFPAY ==
--- NOTE | ~2025-09-29 | MM_ITS ---
EXAMINATION: MM screening star BI w yoseph HISTORY: Screening TECHNIQUE: Craniocaudal and mediolateral oblique 3-D tomosynthesis images were obtained and synthetic 2-D images were generated. CAD analysis was submitted and interpreted. COMPARISON: Comparison to multiple prior studies sequentially, with oldest reviewed study dated 10/20/2014. BREAST PARENCHYMAL COMPOSITION: The breasts are heterogeneously dense, which may obscure small masses. FINDINGS: There is no evidence of suspicious mass, calcification, or architectural distortion to suggest malignancy in either breast. Scattered benign-appearing calcifications are present. IMPRESSION: 1. No mammographic evidence of malignancy. 2. Recommend routine screening mammography in one year. BI-RADS Category 2: Benign finding(s). Reviewed, dictated and finalized at location B. PER INSTALLER
--- OUTSIDE RECORDS SUMMARY | 2025-09-29 19:29 | XMS_ITS | Clinical Summary ---
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 Gender Identity Not on file Sexual Orientation Not on file Plan of Treatment Health Maintenance Due Date Last Done Comments Hepatitis C Virus (HCV) Screening 1966 TdaP Immunization 1966 Hepatitis B Immunization (1 of 3 - 19+ 3-dose series) 1985 Pap Smear 1987 Cervical Cancer Screening (CCS) 1996 HPV/Cotest 1996 Cologuard 2011 Colonoscopy 2011 Colorectal Cancer Screening 2011 Immunochemical Fecal Occult Blood 2011 Pneumococcal Immunization (50+ years) (1 of 1 - PCV) 2016 Zoster Immunization (1 of 2) 2016 Influenza Immunization (#1) 07/17/202507/17, 08/05/2019, 08/27/2017, Additional history exists SARS-COV-2 Immunization ( - 2024- season) 2025 09/27/2021, 01/31/2021 Respiratory Syncytial Virus (RSV) Immunization (Adult) (1 - 1-dose 75+ series) 2041 Human Papillomavirus (HPV) Immunization Aged Out No longer eligible based on patient's age to complete this topic Meningococcal Immunization (ACWY) Aged Out No longer eligible based on patient's age to complete this topic Rotavirus Immunization Aged Out No lo nger eligible based on patient's age to complete this topic
--- OUTSIDE RECORDS SUMMARY | 2025-09-29 19:29 | XMS_ITS | Clinical Summary ---
Author Organization [facility] Address [address] [place] [address] Care Team Providers Care Neuropsychology Director Name Role Phone Unavailable Primary Care Provider [...] 3:19 PM CDT Height 165.1 cm (5' 5) 06/13/2016 3:19 PM CDT Body Mass Index [...] Vaccines (1 of 2) 2016 COVID-19 Vaccine ( - 2024-2 6 season) 2025 Influenza Adult (#1) 2025 08/18/2014 Hepatitis A Vaccines Aged Out No long er eligible based on patient's age to complete this topic Meningococcal B Vaccine Aged Out No l onger eligible based on patient's age to complete this topic Meningococcal Vaccine Aged Out No rose pippa eligible based on patient's age to complete this topic RSV Immunizations Under 20 Months Aged Out No longer eligible based on patient's age to complete this topic
--- OUTSIDE RECORDS SUMMARY | 2025-09-29 19:30 | XMS_ITS | Patient Health Record ---
Author Organization 1 OF Adelia perera DPM [facility] Address [address] [address] [place] [address] Care Team Providers Care Bio Medical Technician Name Role Phone Mary Gonzalez Primary Care Provider Unavailab Franca Mckinney Unavailable [phone] Allergies Allergen (clinical drug ingredient) Drug/Non Drug Allergy documented on EMR Reaction Allergy Type Onset Date Status Substance with sulfonamide structure and antibacterial mechanism of action (substance) sulfa (uncoded) Unknown Allergy Active Reason For Referral No Information Medications Medication SIG (Take, Route, Frequency, Duration) Notes Start Date End Date Status Rosuvastatin Calcium 10 MG Tablet Oral; Duration: 90 Days Acti ve NexIUM 20 MG Capsule Delayed Release 1 capsule Orally Once a day Active Urea 20 % Cream 1 application to aff ected area as needed Topical Once a day; Duration: 30 days 07/28/2024 Active Albuterol Sulfate HFA 108 (90 Base) MCG/ACT Aerosol Solution Inhalation; Duration: 34 Days Active Ketorolac Tromethamine 10 MG Tablet Oral; Duration: 5 Days Activ e Social History Tobacco Use: Social History Observation Description Date Details (start date - stop date) Never Smoker NA - NA Social History Tobacco Use: Social Info Question Answer Notes Tobacco Control (Standard) Tobacco use: Nonsmoker Additional Details Category Social Info Options Details Miscellaneous: Exercise: Active, Occupation: Works full-time Living with: spouse Drugs/Alcohol: Alcohol use: Social alcoho l use Recreational drugs Patient denie s recreational drug use Problems Problem Type SNOMED Code ICD Code Onset Dates Problem Status W/U Status Risk Notes Problem Acquired deformity of right foot (disorder) (171817911) 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 [address] [place] [address] [id number] [phone] Kya Nair Self - patient is the insured Medical (General) History Medical History History ICD Code GERD, asthma
--- OUTSIDE RECORDS SUMMARY | 2025-09-29 19:30 | XMS_ITS | Clinical Summary ---
Author Organization [facility] Address [address] [place] [address] Care Team Providers Care Call Center Specialist Name Role Phone Anita Gonzalez Primary Care Provider [phone]- [phone] Allergies Active Allergy Reactions Criticality Noted Date [...] 6:01 PM CDT Height 165.1 cm (5' 5) 09/12/2023 6:01 PM CDT Body Mass Index 25.09 09/12/2023 6:01 PM CDT Plan of Treatment Health Maintenance Due Date Last Done Comments Breast Cancer Screening-Mammogram 1966 Cervical Cancer Screening 1966 Colon Cancer Screening-Colonoscopy 1966 Depression Screening 1966 Hepatitis C Screening 1966 Hepatitis B Screening 1984 Regular Well Visit/Exam 18-64 1984 Zoster Vaccine (1 of 2) 2016 Covid-19 Vaccine (3 - season) 2025 09/27/2021, 01/31/2021 Influenza Vaccine (#1) 2025 , 10/08/2022, 08/02/2021, Additional history exists DTaP/Tdap/Td Vaccine (2 - Td or Tdap) 06/22/2033 06/22/2023 Pneumococcal vaccine <65 Aged Out No longer eligible based on patient's age to complete this [place] [address] [facility] H[facility]/PPO Address: [facility] [address] [place] [address] Care Teams Call Center Specialist Relationship Specialty Start Date End Date Anita Gonzalez PA [address] [place] [address] [phone] PCP - General Physician Master Pilot 09/12/23
== END 2025-09-29 15:02 | disposition home or self-care (01) ==
LOC: ANHFOHIMG 15:02
PROVIDERS: PCP Physician Assistant Medical; Visit Provider Physician Assistant Medical
DX: Z12.31 Encounter for screening mammogram for malignant neoplasm of breast (principal)
CPT/HCPCS: 77063; 77067

== ENCOUNTER 2025-10-09 07:53 | Outpatient (CLI) | payer OTHER, SELFPAY ==
--- OUTSIDE RECORDS SUMMARY | 2025-10-09 08:03 | XMS_ITS | Clinical Summary ---
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
--- OUTSIDE RECORDS SUMMARY | 2025-10-09 08:03 | XMS_ITS | Clinical Summary ---
Author Organization [facility] Address [address] [place] [address] Care Team Providers Care Drawing Hand Name Role Phone Anita Gonzalez Primary Care Provider [phone]- [phone] Allergies Active Allergy Reactions Criticality Noted Date [...] age to complete this [place] [address] [facility] Care Teams Drawing Hand Relationship Specialty Start Date End Date Anita Gonzalez PA [address] [place] [address] [phone] PCP - General Physician Lighting Technician 09/12/23
--- OUTSIDE RECORDS SUMMARY | 2025-10-09 08:03 | XMS_ITS | Clinical Summary ---
Author Organization [facility] Address [address] [place] [address] Care Team Providers Care Head Swamper Name Role Phone Unavailable Primary Care Provider [...]
--- OUTSIDE RECORDS SUMMARY | 2025-10-09 08:03 | XMS_ITS | Patient Health Record ---
Author Organization [address] 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 [address] [place] [address] [id number] [phone] Kya Nair Self - patient is the insured Medical (General) History Medical History History ICD Code GERD, asthma
--- NOTE | 2025-10-09 11:34 | P.PCNPFT_ITS ---
PFT Procedure Performed PFT Procedure Performed Spirometry with Pre/Post Bronchodilator Plethysmography (Lung Vol) Diffusing Cap (DLCO) Flow Vol Loop PFT Interpretation This is a pulmonary function test with pre and post-bronchodilator spirometry, plethysmography and diffusing capacity. The test was performed and results interpreted in accordance with the 2019 and 2005 ATS/ERS Task Force guidelines respectively using the Global Lung Function Initiative-2012 reference equations. Patient demonstrated good effort and cooperation. Reproducibility criteria were met. The quality of the pre bronchodilator spirometry maneuver was Grade B and post bronchodilator spirometry maneuver was Grade A. Findings: Spirometry: The contour the expiratory flow tracing is notched in 3 of 4 pre bronchodilator maneuvers and 1 of 2 post bronchodilator maneuvers. The contour the inspiratory flow tracing is normal. The pre bronchodilator FVC is 3.02 L, 90% predicted. The pre bronchodilator FEV1 is 2.04 L, 77% predicted. The pre bronchodilator FEV1: FVC ratio is 68%. The post bronchodilator FVC is 2.95 L, representing a 2% decrease. The post bronchodilator FEV1 is 2.07 L, representing a 1% increase. The post bronchodilator FEV1: FVC ratio is 70%. Plethysmography: The total lung capacity is 5.25 L, 101% predicted. The functional residual capacity is 3.02 L, 103% predicted. The residual volume is 2.13 L, 107% predicted. Diffusing capacity: The diffusing capacity unadjusted for hemoglobin and c arboxyhemoglobin is 17.8, 80% predicted. The diffusing capacity adjusted for alveolar volume is 3.92, 88% predicted. In comparison to previous pulmonary function testing on 01/05/2025, the expira tory flow tracing no longer demonstrates a saw tooth pattern but now demonstrates a notched pattern. the post bronchodilator FVC is unchanged from 3.17 L to 2.95 L. The post bronchodilator FEV1 is increased from 1.05 L to 2.07 L. The total lung capacity is unchanged from 5.66 L to 5.25 L. The functional residual capacity is unchanged from 3.17 L to 3.02 L. The residual volume is decreased from 2.57 L to 2.13 L. the diffusing capacity unadjusted for hemoglobin and carboxyhemoglobin is unchanged from 17.6 to 17.8. The diffusing capacity adjusted for alveolar volume is unchanged from 3.85 to 3.92. Impression: The notched expiratory flow tracing pattern has been described with coughing or tracheobronchomalacia. The spirometry is normal without evidence of an obstructive abnormality. There is no significant improvement after inhaling a single dose of albuterol. The lung volumes are normal. The diffusing capacity is normal. In comparison to previous pulmonary function testing on 01/05/2025, the expiratory flow tracing no longer demonstrates a saw tooth pattern but now demonstrates a notched pattern. There has has been a greater than anticipated time dependent increase in the FEV1. There has been a greater than anticipated time dependent decrease in the residual volume with no significant change in the FVC, total lung capacity, functional residual capacity or diffusing capacity. Clinical correlation is recommended.
--- NOTE | 2025-10-09 11:43 | WPDPFTINT ---
PFT Procedure Performed PFT Procedure Performed Spirometry with Pre/Post Bronchodilator Plethysmography (Lung Vol) Diffusing Cap (DLCO) Flow Vol Loop PFT Interpretation This is a pulmonary function test with pre and post-bronchodilator spirometry, plethysmography and diffusing capacity. The test was performed and results interpreted in accordance with the 2019 and 2005 ATS/ERS Task Force guidelines respectively using the Global Lung Function Initiative-2012 reference equations. Patient demonstrated good effort and cooperation. Reproducibility criteria were met. The quality of the pre bronchodilator spirometry maneuver was Grade A and post bronchodilator spirometry maneuver was Grade A. Findings: Spirometry: The contour the inspiratory and expiratory flow tracing are normal. The pre bronchodilator FVC is 2.54 L, 96% predicted. The pre bronchodilator FEV1 is 1.93 L, 94% predicted. The pre bronchodilator FEV1: FVC ratio 76%. The post bronchodilator FVC is 2.53 L, representing no change. The post bronchodilator FEV1 is 2.02 L, representing a 5% increase. The post bronchodilator FEV1: FVC ratio is 80%. Plethysmography: The total lung capacity is 4.29 L, 91% predicted. The functional residual capacity is 2.62 L, 98% predicted. The residual volume is 1.71 L, 82% predicted. Diffusing capacity: The diffusing capacity unadjusted for hemoglobin and carboxyhemoglobin is 12.2, 62% predicted. The diffusing capacity adjusted for alveolar volume is 3.19, 73% predicted. Impression: The spirometry is normal without evidence of an obstructive abnormality. There is no significant improvement after inhaling a single dose of albuterol. The lung volumes are normal. The diffusing capacity unadjusted for hemoglobin and carboxyhemoglobin is mildly decreased and normalizes when adjusted for alveolar volume. There are no prior studies for comparison
== END 2025-10-09 07:54 | disposition home or self-care (01) ==
PROVIDERS: PCP Physician Assistant Medical; Visit Provider Nurse Practitioner Family
DX: J45.909 Unspecified asthma, uncomplicated (principal)
CPT/HCPCS: 94375; 94726; 94729